=== PATIENT | female | born 1940 | race Caucasian/White ===

== ENCOUNTER 2019-10-10 05:46 | Observation (INO) ==
[2019-10-10] MEDS ORDERED: *HR* Promethazine 25 MG/ML VIAL IVP PRN (08:22)
[2019-10-10] MEDS ORDERED: Naloxone 0.4 MG/ML INJ IVP PRN (08:22)
[2019-10-10 08:46] LABS: Basophils % 0.3 %; Eosinophils # 0.1 K/mcL (0.0-0.6); Hematocrit 24.6 % (35.3-44.9); Hemoglobin 8.1 g/dL (11.5-15.4); Immature Granulocytes % 0.8 % (0-4); Lymphocytes # 0.8 K/mcL (0.6-4.6); Lymphocytes % 9.2 %; Mean Corpuscular HGB Conc 32.9 g/dL (31.6-35.5); Mean Corpuscular Hemoglobin 32.4 pg (28.0-33.3); Mean Corpuscular Volume 98.4 fL (83.0-100.0); Mean Platelet Volume 11.7 fL (9.4-12.4); Monocytes # 0.5 K/mcL (0.0-1.3); Monocytes % 5.5 %; Neutrophils # 7.5 K/mcL (1.6-8.9); Platelet Count 172 K/mcL (140-400); Red Cell Distribution Width 13.3 % (11.5-14.5); Segmented Neutrophils % 83.2 %
[2019-10-10 08:53] LABS: Prothrombin Time 11.9 Seconds (9.4-12.1)
[2019-10-10 09:03] LABS: BUN/Creatinine Ratio 50 (6-26); Blood Urea Nitrogen 52 mg/dL (8-23); Calcium 8.4 mg/dL (8.6-10.3); Carbon Dioxide 26 mEq/L (23-29); Chloride 107 mEq/L (98-107); Glucose 180 mg/dL (70-105); Osmolality,Calculated 309 (280-300); Potassium 5.2 mEq/L (3.5-5.1); Sodium 140 mEq/L (136-145); eGFR For African Americans > 60 (> 60); eGFR For Non-African Americans 52 (> 60)
[2019-10-10] MEDS: Pantoprazole 40 MG VIAL IVP SCH (11:43)
[2019-10-10 14:45] LABS: Hematocrit 23.8 % (35.3-44.9)
[2019-10-10] MEDS ORDERED: Acetaminophen 325 MG TABLET PO PRN (15:07)
[2019-10-10] MEDS ORDERED: 0.9 % Sodium Chloride 250 ML IVC SCH (15:15)
[2019-10-10] MEDS: Ringers Solution, Lactated 1,000 ML IVC SCH (15:59)
[2019-10-10] MEDS ORDERED: D5% in Water 1,000 ML IVC PRN (17:20)
[2019-10-10] MEDS ORDERED: *HR* Dextrose 50 % in Water (Syg) 50 ML SYRINGE IVP PRN (17:20)
[2019-10-10] MEDS ORDERED: Dextrose Gel 15 GM/37.5 ML TUBE PO PRN ×2 (17:20)
[2019-10-10 18:35] LABS: Hematocrit 23.4 % (35.3-44.9)
[2019-10-10 20:35] LABS: Hematocrit 22.9 % (35.3-44.9); Hemoglobin 7.3 g/dL (11.5-15.4)
[2019-10-10] MEDS: Insulin LISPRO 300 UNITS/3 ML VIAL SQ SCH (20:59)
[2019-10-10] MEDS ORDERED: 0.9 % Sodium Chloride 250 ML ONE (21:15)
[2019-10-11] MEDS ORDERED: 0.9 % Sodium Chloride 250 ML ONE (01:03)
[2019-10-11 06:00] LABS: Hematocrit 29.8 % (35.3-44.9); Hemoglobin 9.8 g/dL (11.5-15.4); Mean Corpuscular HGB Conc 32.9 g/dL (31.6-35.5); Mean Corpuscular Hemoglobin 31.4 pg (28.0-33.3); Mean Corpuscular Volume 95.5 fL (83.0-100.0); Mean Platelet Volume 11.6 fL (9.4-12.4); Platelet Count 135 K/mcL (140-400); Red Blood Count 3.12 M/mcL (3.82-4.97); Red Cell Distribution Width 15.8 % (11.5-14.5); White Blood Count 7.3 K/mcL (4.3-11.1)
[2019-10-11 06:18] LABS: BUN/Creatinine Ratio 30 (6-26); Blood Urea Nitrogen 24 mg/dL (8-23); Calcium 8.4 mg/dL (8.6-10.3); Carbon Dioxide 28 mEq/L (23-29); Chloride 107 mEq/L (98-107); Glucose 95 mg/dL (70-105); Magnesium 1.5 mg/dL (1.6-2.6); Osmolality,Calculated 292 (280-300); Potassium 4.3 mEq/L (3.5-5.1); Sodium 139 mEq/L (136-145); eGFR For African Americans > 60 (> 60); eGFR For Non-African Americans > 60 (> 60)
[2019-10-11] MEDS: Insulin LISPRO 300 UNITS/3 ML VIAL SQ SCH ×4 (07:40→20:51)
[2019-10-11] MEDS ORDERED: Propofol 500 MG/50 ML INFUS..BTL ONE (08:58)
[2019-10-11] MEDS ORDERED: Lidocaine -MPF 2% 2 ML VIAL ONE (08:58)
[2019-10-11] MEDS: Ascorbic Acid 500 MG TABLET PO SCH (11:34)
[2019-10-11] MEDS: Fenofibrate 54 MG TABLET PO SCH (11:35)
[2019-10-11] MEDS: amLODIPine 5 MG TABLET PO SCH (11:35)
[2019-10-11] MEDS: Pantoprazole 40 MG VIAL IVP SCH (11:37)
[2019-10-11] MEDS: Ringers Solution, Lactated 1,000 ML IVC SCH (11:38)
[2019-10-12 04:43] LABS: Basophils % 0.4 %; Eosinophils # 0.2 K/mcL (0.0-0.6); Eosinophils % 2.8 %; Hematocrit 29.9 % (35.3-44.9); Hemoglobin 10.3 g/dL (11.5-15.4); Immature Granulocytes % 0.6 % (0-4); Lymphocytes % 14.6 %; Mean Corpuscular HGB Conc 34.4 g/dL (31.6-35.5); Mean Corpuscular Hemoglobin 31.2 pg (28.0-33.3); Mean Corpuscular Volume 90.6 fL (83.0-100.0); Mean Platelet Volume 11.6 fL (9.4-12.4); Monocytes # 0.7 K/mcL (0.0-1.3); Monocytes % 9.8 %; Neutrophils # 4.9 K/mcL (1.6-8.9); Platelet Count 156 K/mcL (140-400); Red Cell Distribution Width 15.2 % (11.5-14.5); Segmented Neutrophils % 71.8 %; White Blood Count 6.8 K/mcL (4.3-11.1)
[2019-10-12 04:59] LABS: BUN/Creatinine Ratio 15 (6-26); Blood Urea Nitrogen 13 mg/dL (8-23); Calcium 8.6 mg/dL (8.6-10.3); Carbon Dioxide 28 mEq/L (23-29); Chloride 104 mEq/L (98-107); Glucose 89 mg/dL (70-105); Magnesium 1.5 mg/dL (1.6-2.6); Osmolality,Calculated 290 (280-300); Potassium 3.9 mEq/L (3.5-5.1); Sodium 140 mEq/L (136-145); eGFR For African Americans > 60 (> 60); eGFR For Non-African Americans > 60 (> 60)
[2019-10-12] MEDS: Insulin LISPRO 300 UNITS/3 ML VIAL SQ SCH ×2 (07:36→13:30)
[2019-10-12] MEDS: Ascorbic Acid 500 MG TABLET PO SCH (09:24)
[2019-10-12] MEDS: amLODIPine 5 MG TABLET PO SCH (09:25)
[2019-10-12] MEDS: Fenofibrate 54 MG TABLET PO SCH (09:25)
[2019-10-12 13:57] VITALS: BP 138/72
== END 2019-10-12 16:10 | disposition home or self-care (01) ==
LOC: 3ANU → SUATTDRO 07:21
PROVIDERS: ADMIT Internal Medicine; ATTEND Internal Medicine